=== PATIENT | male | born 1955 | race Caucasian/White ===

== ENCOUNTER 2018-03-10 07:48 | Outpatient (CLI) | payer MEDICARE, OTHER ==
[2018-03-10 08:15] LABS: #Eosinphils 0.2 thou/uL (0.0-0.7); #Lymphocytes 1.4 thou/uL (1.20-3.40); #Monocytes 0.7 thou/uL (0.11-0.59); #Neutrophils 4.4 thou/uL (1.40-6.50); %Basophils 0.7 % (0.0-1.0); %Eosinophils 3.6 % (0.0-10.0); %Monocytes 10.1 % (0.0-10.0); %Neutrophils 64.6 % (42.0-75.0); Hemoglobin 13.8 g/dL (14.0-18.0); Mean Corpuscular HGB CONC 32.4 g/dL (32.0-36.0); Mean Corpuscular Hemoglobin 30.4 pg (27.0-31.0); Mean Corpuscular Volume 93.8 fl (80.0-94.0); Mean Platelet Volume 10.9 fL (7.4-10.4); Platelet Count 162 thou/uL (130-400); RBC Distribution Width 13.2 % (11.5-14.5); Red Blood Cell (RBC) Count 4.54 mill/uL (4.70-6.10); White Blood Cell (WBC) Count 6.7 thou/uL (4.8-10.8)
[2018-03-10 08:57] LABS: ALT (SGPT) 8 U/L (8-55); AST (SGOT) 15 U/L (5-34); Alkaline Phosphatase 114 U/L (40-150); Anion Gap 16 mmol/L (10-20); BUN (Urea Nitrogen) 8 mg/dL (8.4-25.7); Bilirubin, Total 0.3 mg/dL (0.2-1.2); Calc. Creatinine Clearance 0 mL/min (70-130); Calcium 9.5 mg/dL (7.8-10.44); Carbon Dioxide 25 mmol/L (23-31); Cardiac Risk 3.4 (Less than 4.5); Chloride 104 mmol/L (98-107); Cholesterol 154 mg/dl (< 200 Desired); Estimated GFR-MDRD 78; Globulin 2.7 g/dL (2.4-3.5); Glucose 84 mg/dL (80-115); HDL Cholesterol 45 mg/dL (>60 Neg Risk); LDL Cholesterol, Calculated 81 mg/dL; Potassium 3.8 mmol/L (3.5-5.1); Protein, Total 6.7 g/dL (5.8-8.1); Sodium 141 mmol/L (136-145); Triglycerides 138 mg/dL (Less than 150)
[2018-03-10 09:11] LABS: Thyroid Stimulating Hormone 1.1949 uIU/mL (0.35-4.94)
[2018-03-10 17:56] LABS: Free T4 (Free Thyroxine) 0.71 ng/dL (0.70-1.48)
== END 2018-03-10 07:49 | disposition home or self-care (01) ==
LOC: MADLAB 07:48
PROVIDERS: ATTEND Family Medicine
DX: R00.1 Bradycardia, unspecified (principal); I82.532 Chronic embolism and thrombosis of left popliteal vein; E78.5 Hyperlipidemia, unspecified; Z79.01 Long term (current) use of anticoagulants
CPT/HCPCS: 36415; 80053; 80061; 84439; 84443; 85025; 93005; 93010

== ENCOUNTER 2018-03-15 14:41 | Outpatient (CLI) | payer MEDICARE ==
--- NOTE | 2018-03-15 15:57 | RAD ---
CHEST 2 VIEWS: HISTORY: Dyspnea. COMPARISON: None. FINDINGS: Normal cardiac silhouette. The pulmonary vessels and hilum are normal. Costophrenic angles are vicki r. No mass. No consolidation. No pneumothorax or osseous abnormalities. IMPRESSION: No acute cardiopulmonary process. POS: [facility]
== END 2018-03-15 14:42 | disposition home or self-care (01) ==
LOC: MADRAD 14:41
PROVIDERS: ATTEND Family Medicine
DX: R06.00 Dyspnea, unspecified (principal)
CPT/HCPCS: 71046

== ENCOUNTER 2018-04-14 09:52 | Outpatient (CLI) | payer MEDICARE ==
--- NOTE | 2018-04-14 11:16 | RAD ---
TWO VIEWS OF THE LEFT SHOULDER: Comparison: None. History: Chronic pain in the left shoulder. FINDINGS: Two views of the left shoulder shows no evidence of acute fracture or dislocation. No degenerative ch anges are seen. No soft tissue swelling is seen. The visualized left thorax is unremarkable. IMPRESSION: Unremarkable exam. POS: [facility]
--- NOTE | 2018-04-14 11:18 | RAD ---
TWO VIEWS LEFT HIP: History: Left hip pain and trauma. FINDINGS: AP and frogleg views of the left hip obtained and demonstrate no evidence of left hip fractures, subl uxations, or bony lesions. No other significant hip abnormality is seen. IMPRESSION: Normal two views left hip. POS: [facility]
--- NOTE | 2018-04-14 11:19 | RAD ---
FRONTAL RADIOGRAPH PELVIS: 04/14/2018 HISTORY: Chronic pain. No history of trauma. COMPARISON: None. FINDINGS: No widening of the sacroiliac joints or pubic symphysis. The pelvic ring is intact. The femoral hea ds project normally over their respective acetabulum. Mild superior joint space narrowing involves the bilateral hips, left greater than right. There is m ild lateral acetabular osteophyte formation on the left. IMPRESSION: No acute osseous abnormality. POS: [facility]
--- NOTE | 2018-04-14 11:21 | RAD ---
THREE VIEWS LUMBAR SPINE: History: Chronic back pain without trauma. FINDINGS: AP, lateral, and coned down views of the lumbar spine obtained. There is a large amount of stool seen in the colon. There is loss of the normal lordotic curvature of the lumbar spine. Anterior osteophytes seen throughout the lumbar spine. No significant evidence of acute lumbar spine fractures seen. Disc spaces are well maintained. IMPRESSION: Anterior osteophytes and changes of spondylosis in the lumbar spine. No acute abnormalities seen. POS: [facility]
== END 2018-04-14 09:53 | disposition home or self-care (01) ==
LOC: MADLABBHPM 09:52
PROVIDERS: ATTEND Family Medicine
DX: J44.9 Chronic obstructive pulmonary disease, unspecified (principal); M25.512 Pain in left shoulder; G89.29 Other chronic pain; M47.896 Other spondylosis, lumbar region
CPT/HCPCS: 72100; 72170

== ENCOUNTER 2018-05-13 10:16 | Outpatient (CLI) | payer MEDICARE ==
[2018-05-13 10:40] LABS: Hemoglobin 13.9 g/dL (14.0-18.0); Mean Corpuscular HGB CONC 33.8 g/dL (32.0-36.0); Mean Corpuscular Hemoglobin 31.3 pg (27.0-31.0); Mean Corpuscular Volume 92.8 fL (78.0-98.0); Mean Platelet Volume 9.1 fL (7.4-10.4); Platelet Count 160 thou/uL (130-400); RBC Distribution Width 12.7 % (11.5-14.5); Red Blood Cell (RBC) Count 4.44 mill/uL (4.70-6.10); White Blood Cell (WBC) Count 5.8 thou/uL (4.8-10.8)
[2018-05-13 10:56] LABS: ALT (SGPT) 9 U/L (8-55); AST (SGOT) 17 U/L (5-34); Alkaline Phosphatase 87 U/L (40-150); Anion Gap 16 mmol/L (10-20); BUN (Urea Nitrogen) 12 mg/dL (8.4-25.7); Bilirubin, Total 0.4 mg/dL (0.2-1.2); Calc. Creatinine Clearance 0 mL/min (70-130); Calcium 8.7 mg/dL (7.8-10.44); Carbon Dioxide 25 mmol/L (23-31); Cardiac Risk 3.6 (Less than 4.5); Chloride 103 mmol/L (98-107); Cholesterol 138 mg/dl (< 200 Desired); Estimated GFR-MDRD 74; Globulin 2.7 g/dL (2.4-3.5); Glucose 96 mg/dL (80-115); HDL Cholesterol 38 mg/dL (>60 Neg Risk); LDL Cholesterol, Calculated 84 mg/dL; Potassium 4.3 mmol/L (3.5-5.1); Protein, Total 6.7 g/dL (5.8-8.1); Sodium 140 mmol/L (136-145); Triglycerides 80 mg/dL (Less than 150)
== END 2018-05-13 10:17 | disposition home or self-care (01) ==
LOC: MADLAB 10:16
PROVIDERS: ATTEND Psychiatry & Neurology Psychiatry
DX: F31.81 Bipolar II disorder (principal); E78.5 Hyperlipidemia, unspecified; I10 Essential (primary) hypertension
CPT/HCPCS: 36415; 80053; 80061; 80164; 85027

== ENCOUNTER 2018-05-31 08:18 | Outpatient (CLI) | payer MEDICARE | END 2018-05-31 08:19 | disposition home or self-care (01) | LOC: MADLAB 08:18 | PROVIDERS: ATTEND Psychiatry & Neurology Psychiatry | DX: F31.9 Bipolar disorder, unspecified (principal) | CPT/HCPCS: 36415; 80164 ==

== ENCOUNTER 2018-06-22 10:15 | Outpatient (CLI) | payer MEDICARE ==
--- NOTE | 2018-06-22 12:01 | RAD ---
CHEST 1 VIEW: Date: 06/22/18 HISTORY: Cough. COPD. Chronic GERD. COMPARISON: Radiograph dated 03/15/18. FINDINGS: There is a linear opacity in left lung base. No pneumothorax. Heart size upper limits of normal. No a cute osseous abnormality. IMPRESSION: Linear opacity in left lung base may reflect developing pneumonia. POS: [facility]
== END 2018-06-22 10:16 | disposition home or self-care (01) ==
LOC: MADRAD 10:15
PROVIDERS: ATTEND Family Medicine
DX: J44.9 Chronic obstructive pulmonary disease, unspecified (principal); R05 Cough; K21.9 Gastro-esophageal reflux disease without esophagitis; R91.8 Other nonspecific abnormal finding of lung field
CPT/HCPCS: 71046

== ENCOUNTER 2018-07-07 11:05 | Outpatient (CLI) | payer MEDICARE ==
--- NOTE | 2018-07-07 12:07 | RAD ---
PORTABLE AP CHEST RADIOGRAPH: DATE: 07-07-18 History: COPD. Basilar pneumonia. Comparison: 06-22-18 FINDINGS: The cardiac silhouette is magnified by projection. Pulmonary vasculature is within normal limits. The lungs are clear. Linear density left lung base is no longer seen and may have been related to atelec tasis on the prior examination. Lungs are clear on today's exam. Degenerative changes are seen in the spine with prominent osteophyte seen right lateral aspect of the lower thoracic spine. IMPRESSION: 1. No acute cardiopulmonary process. 2. Previously noted linear opacity at the left lung base may be related to resolution of atelectasis or pneumonia when compared to the prior study. Lungs are clear on today's exam. POS: [facility]
== END 2018-07-07 11:06 | disposition home or self-care (01) ==
LOC: MADRAD 11:05
PROVIDERS: ATTEND Family Medicine
DX: J44.9 Chronic obstructive pulmonary disease, unspecified (principal); J18.9 Pneumonia, unspecified organism; R91.8 Other nonspecific abnormal finding of lung field
CPT/HCPCS: 71046

== ENCOUNTER 2018-07-29 11:03 | Outpatient (CLI) | payer MEDICARE ==
[2018-07-29 11:45] LABS: Anion Gap 13 mmol/L (10-20); BUN (Urea Nitrogen) 16 mg/dL (8.4-25.7); Calc. Creatinine Clearance 0 mL/min (70-130); Calcium 8.6 mg/dL (7.8-10.44); Chloride 106 mmol/L (98-107); Estimated GFR-MDRD 72; Glucose 118 mg/dL (80-115); Potassium 4.1 mmol/L (3.5-5.1); Sodium 140 mmol/L (136-145)
[2018-07-29 12:00] LABS: Carbon Dioxide 25 mmol/L (23-31)
== END 2018-07-29 11:04 | disposition home or self-care (01) ==
LOC: MADLABBHPM 11:03
PROVIDERS: ATTEND Family Medicine
DX: R10.2 Pelvic and perineal pain (principal)
CPT/HCPCS: 36415; 80048

== ENCOUNTER 2018-08-02 07:22 | Outpatient (CLI) | payer MEDICARE ==
--- NOTE | 2018-08-02 09:30 | CT ---
CT ABDOMEN AND PELVIS WITH IV CONTRAST: Date: 08/02/18 HISTORY: Right lower quadrant abdominal pain for 2 weeks, suprapubic pain. COMPARISON: None available. FINDINGS: There is mild bibasilar atelectasis present. Degenerative changes are seen in the spine. The liver, spleen, pancreas, bilateral adrenal glands, kidneys, and decompressed urinary bladder demo nstrate a normal CT appearance. Minimal atherosclerotic plaque is seen within the abdominal aorta. Th e abdominal aorta is normal in caliber. The appendix is not visualized, but there are no secondary signs to suggest appendicitis. No free fluid, fluid collection, or lymphadenopathy is seen in the abdomen or pelvis. Loops of small bowel are normal in caliber. Small amount of retained fecal material is seen throughout the colon. IMPRESSION: No acute findings are seen in the abdomen or pelvis. POS: [facility]
[2018-08-02] MEDS ORDERED: Iopamidol 370 76% 100 ML VIAL ONE (10:44)
== END 2018-08-02 07:23 | disposition home or self-care (01) ==
LOC: MADCT 07:22
PROVIDERS: ATTEND Family Medicine
DX: R10.31 Right lower quadrant pain (principal)
CPT/HCPCS: 74177

== ENCOUNTER 2018-09-14 08:31 | Outpatient (CLI) | payer MEDICARE ==
--- NOTE | 2018-09-14 12:11 | ULT ---
TESTICULAR ULTRASOUND WITH DOPPLER: HISTORY: Hernia surgery at age 14. Now having pain x 3 weeks. No reported trauma. COMPARISON: None. TECHNIQUE: Hightower scale, color flow, Doppler imaging, and spectral waveform analysis is performed of the left and right testicle. FINDINGS: RIGHT HEMISCROTUM: The right testicle has a homogeneous echotexture. No solid masses. The right testicle measures 3.6 x 2.7 x 3.5 cm. The right epididymis measures 1.4 x 1.0 cm. There is a hypoechoic mass in the right epididymis measuring 0.7 x 0.2 cm suggesting a cyst. There is no free fluid. LEFT HEMISCROTUM: The left testicle has a homogeneous echotexture. No testicular mass. Though there are no solid mass es, there are anechoic foci in the left testicle. The largest anechoic focus measures 0.8 x 0.9 x 0. 8 cm. The left testicle measures 3.2 x 2.0 x 2.5 cm. The left epididymis measures 0.9 x 0.7 cm. Th ere is a hypoechoic mass in the left epididymis measuring 0.5 x 0.5 x 1.1 cm. There is no free fluid in the left hemiscrotum. TESTICULAR DOPPLER: Vascular to both testicles. IMPRESSION: 1. Bilateral epididymal cysts. 2. Nonspecific cyst in the left testicle. Consider urology consultation for further evaluation. CODE T POS: [facility]
== END 2018-09-14 08:32 | disposition home or self-care (01) ==
LOC: MADULT 08:31
PROVIDERS: ATTEND Family Medicine
DX: R10.30 Lower abdominal pain, unspecified (principal); N50.3 Cyst of epididymis; N44.2 Benign cyst of testis
CPT/HCPCS: 76870; 93976

== ENCOUNTER 2018-09-29 13:31 | Outpatient (CLI) | payer MEDICARE ==
[2018-09-29 13:58] LABS: Bilirubin Small (Negative); Blood, Urine Negative (Negative); Clarity Clear (Clear); Glucose, Urine (Dipstick) Negative (Negative); Leukocyte Negative (Negative); Nitrite Negative (Negative); Protein, Urine (Dipstick) Negative (Neg-Trace)
[2018-09-29 14:02] LABS: Eosinophils 8 % (0-10); Hemoglobin 13.5 g/dL (14.0-18.0); Lymphocytes 21 % (21-51); MDiff Complete? YES; Mean Corpuscular HGB CONC 32.5 g/dL (32.0-36.0); Mean Corpuscular Hemoglobin 32.5 pg (27.0-31.0); Mean Corpuscular Volume 99.8 fL (78.0-98.0); Monocytes 8 % (0-10); Neutrophil 63 % (42-75); Platelet Count 120 thou/uL (130-400); RBC Distribution Width 13.1 % (11.5-14.5); Red Blood Cell (RBC) Count 4.16 mill/uL (4.70-6.10); White Blood Cell (WBC) Count 5.4 thou/uL (4.8-10.8)
[2018-09-29 14:05] LABS: Specific Gravity, Urine 1.032 (1.002-1.036)
[2018-09-29 14:06] LABS: ALT (SGPT) 34 U/L (8-55); AST (SGOT) 43 U/L (5-34); Albumin 3.7 g/dL (3.4-4.8); Alkaline Phosphatase 78 U/L (40-150); Anion Gap 12 mmol/L (10-20); BUN (Urea Nitrogen) 18 mg/dL (8.4-25.7); Bacteria/HPF None Seen HPF (None Seen); Bilirubin, Total 0.3 mg/dL (0.2-1.2); Calc. Creatinine Clearance 0 mL/min (70-130); Calcium 8.6 mg/dL (7.8-10.44); Carbon Dioxide 27 mmol/L (23-31); Chloride 104 mmol/L (98-107); Estimated GFR-MDRD 73; Globulin 2.7 g/dL (2.4-3.5); Glucose 79 mg/dL (80-115); Other Microscopic Description 1+ MUCUS; Potassium 4.2 mmol/L (3.5-5.1); Protein, Total 6.4 g/dL (5.8-8.1); RBC/HPF None Seen HPF (0-3); Sodium 139 mmol/L (136-145); Squamous Epithelial 0-3 HPF (0-3); WBC/HPF 0-3 HPF (0-3)
--- NOTE | 2018-09-29 16:01 | RAD ---
CHEST TWO VIEWS: 09/29/18 HISTORY: Preop. COMPARISON: 07/07/18. FINDINGS: The cardiac silhouette is unremarkable. Pulmonary vasculature upper limits of normal. Mediastinum is midline. No confluent air space consolidation, pneumothorax or pleural fluid. Degenerative changes of the thoracic spine. IMPRESSION: Borderline pulmonary vascular congestion. No florid edema is evident. POS: [facility]
== END 2018-09-29 13:32 | disposition home or self-care (01) ==
LOC: MADLABBHPM 13:31
PROVIDERS: ATTEND Family Medicine
DX: Z01.818 Encounter for other preprocedural examination (principal); R09.89 Other specified symptoms and signs involving the circulatory and respiratory systems
CPT/HCPCS: 36415; 71046; 80053; 81001; 85025